=== PATIENT | female | born 2005 | race Caucasian/White ===

== ENCOUNTER 2025-05-18 10:12 | Outpatient (REF) | payer BC, SELFPAY ==
--- OUTSIDE RECORDS SUMMARY | 2025-05-18 10:15 | XMS_ITS | Patient Health Record ---
Author Organization [facility] Address [address] [place] [address] Care Team Providers Care Systems Requirements Planner Name Role Phone Indy Genao M.D. Primary Care Provider Unavailable Jose Roberto Finch Unavailable [phone] Allergies No Known Allergies Reason For Referral No Information Medications Medication SIG (Take, Route, Fr equency, Duration) Notes Start Date End Date Status Sertraline HCl 50 MG 1 tablet Orally Once a day Active Omeprazole 20 MG 1 Orally Once a day as needed 08/2025 Active Immunizations Vaccine Route Administration Date Status Comme nts Influenza Unknown 05/16/2025 Refused Social History Tobacco Use: Social History Observation Description Date Details (start date - stop date) Never Smoker NA - NA Tobacco Control (Standard) Question Answer Notes Tobacco use: Nonsmoker AUDIT-C (Standard) Question Answer Notes Did you have a drink containing alcohol in the p ast year? No Points 0 Interpretation Negative Section Notes: Non-smoker, no significant a lcohol Problems Problem Type SNOMED Code ICD Code Onset Dates Problem Status W/U Status Risk Notes Problem Rectal bleeding (46467526) Rectal bleeding (K62.5) Active confirmed Problem Abdominal pain, epigastric (R10.13) Active confirmed Problem Gastroesophageal reflux disease (756415875) GERD (gastroesophag eal reflux disease) (K21.9) Active confirmed Vital Signs Temperature 98.4 degrees Fahrenheit 05/16/2025 Blood pressure diastolic 01 mm Hg 05/16/2025 Height 61 in 05/16/2025 Blood pressure systolic 001 mm Hg 05/16/2025 Weight 114.4 lbs 05/16/2025 BMI 21.61 kg/m2 05/16/2025 Procedures Procedure Date Ordered Date Performed Result Body Sit e UPPER GI ENDOSCOPY 05/16/2025 N/A COLONOSCOPY 05/16/2025 N/A Encounters Encounter Location Date Provider Diagnosis [facility] [address] [place] [address] 05/16/2025 Jose Roberto Finch Rectal bleeding K62. 5 ; GERD (gastroesophageal reflux disease) K21.9 and Abdominal pain, epigastric R10.13 [facility] [address] [place] [address] 05/16/2025 Jose Roberto Finch Assessments Encounter Date Diagnosis (ICD Code) Assessment Notes Treatment Notes Treatment Clinical Notes Section Notes 05/16/2025 Rectal bleeding (ICD-10 - K62.5) Overall, Beth appears quite well. We did review that part of her symptomatology may be some underlying irritable bowel syndrome given some slight bowel movement regularity and abdominal cramps, we did discuss that she could add some supplemental fiber or something like MiraLAX to her daily regimen if her bowel movements become symptomatically uncomfortable with more constipation or rectal discomfort. However at this point they do not seem particularly problematic in that regard. In regard to the rectal bleeding we did review that this most likely reflects something like an internal hemorrhoid. However given the persistence over the past year and now occurring with every bowel movement over at least the past couple of weeks, with blood on the toilet paper and in the toilet bowl, I did recommend a colonoscopy to definitively exclude any other pathology such as inflammatory bowel disease or some type of polyp such as a juvenile polyp. In regard to the reflux and abdominal discomfort I recommended an upper endoscopy on the same day to rule out any significant esophagitis or other possibilities such as celiac disease. Full consent has been attained from her for both procedures, including risks of bleeding and perforation. The procedures will be done with monitored anesthesia care. I shall check some laboratories including a celiac disease profile. I have also ordered an abdominal ultrasound to rule out any other possibilities such as symptomatic gallstones. I did advise Beth and her mother to let me know if she has any increasing symptoms such as more bleeding or abdominal pain in the interim. Beth and her mother were comfortable with this plan. Thank you again for allowing me to participate in Beth's care. I shall continue to keep you advised of her progress. 05/16/2025 GERD (gastroesophag eal reflux disease) (ICD-10 - K21.9) Overall, Beth appears quite well. We did review that part of her symptomatology may be some underlying irritable bowel syndrome given some slight bowel movement regularity and abdominal cramps, we did discuss that she could add some supplemental fiber or something like MiraLAX to her daily regimen if her bowel movements become symptomatically uncomfortable with more constipation or rectal discomfort. However at this point they do not seem particularly problematic in that regard. In regard to the rectal bleeding we did review that this most likely reflects something like an internal hemorrhoid. However given the persistence over the past year and now occurring with every bowel movement over at least the past couple of weeks, with blood on the toilet paper and in the toilet bowl, I did recommend a colonoscopy to definitively exclude any other pathology such as inflammatory bowel disease or some type of polyp such as a juvenile polyp. In regard to the reflux and abdominal discomfort I recommended an upper endoscopy on the same day to rule out any significant esophagitis or other possibilities such as celiac disease. Full consent has been attained from her for both procedures, including risks of bleeding and perforation. The procedures will be done with monitored anesthesia care. I shall check some laboratories including a celiac disease profile. I have also ordered an abdominal ultrasound to rule out any other possibilities such as symptomatic gallstones. I did advise Beth and her mother to let me know if she has any increasing symptoms such as more bleeding or abdominal pain in the interim. Beth and her mother were comfortable with this plan. Thank you again for allowing me to participate in Beth's care. I shall continue to keep you advised of her progress. 05/16/2025 Abdominal pain, epigastric (ICD-10 - R10.13) Overall, Beth appears quite well. We did review that part of her symptomatology may be some underlying irritable bowel syndrome given some slight bowel movement regularity and abdominal cramps, we did discuss that she could add some supplemental fiber or something like MiraLAX to her daily regimen if her bowel movements become symptomatically uncomfortable with more constipation or rectal discomfort. However at this point they do not seem particularly problematic in that regard. In regard to the rectal bleeding we did review that this most likely reflects something like an internal hemorrhoid. However given the persistence over the past year and now occurring with every bowel movement over at least the past couple of weeks, with blood on the toilet paper and in the toilet bowl, I did recommend a colonoscopy to definitively exclude any other pathology such as inflammatory bowel disease or some type of polyp such as a juvenile polyp. In regard to the reflux and abdominal discomfort I recommended an upper endoscopy on the same day to rule out any significant esophagitis or other possibilities such as celiac disease. Full consent has been attained from her for both procedures, including risks of bleeding and perforation. The procedures will be done with monitored anesthesia care. I shall check some laboratories including a celiac disease profile. I have also ordered an abdominal ultrasound to rule out any other possibilities such as symptomatic gallstones. I did advise Beth and her mother to let me know if she has any increasing symptoms such as more bleeding or abdominal pain in the interim. Beth and her mother were comfortable with this plan. Thank you again for allowing me to participate in Beth's care. I shall continue to keep you advised of her progress. Plan Of Treatment Pending Test Test Name Order Date UPPER GI ENDOSCOPY 05/16/2025 COLONOSCOPY 05/16/2025 LIVER PROFILE 05/16/2025 IRON + IBC (FE) 05/16/2025 CRP 05/16/2025 CBC w DIFF 05/16/2025 SED RATE (ESR) 05/16/2025 Ferritin 05/16/2025 Vitamin B12 and Folate 05/16/2025 TSH reflex Free T4 05/16/2025 US abdomen complete 05/16/2025 Celiac Disease Panel 05/16/2025 Next Appt Details Provider Name:Jose Roberto Finch , 05/24/2025 03:10:00 PM, [address] [place] [address] , [place], [place], [phone], Insurance Providers Payer Name Payer Address Payer Phone Subscriber Number Group Number Insured Name Patient Relationship to Insured Coverage Start Date Coverage End Date [facility] [address] [place] [address] [id number] BLAKE ORELLANA Self - patient is the insured
[2025-05-18 10:25] LABS: MANUAL DIFF FLAG NO
[2025-05-18 10:58] LABS: Hematocrit 38.6 % (37.0-47.0); Hemoglobin 13.2 g/dl (12.0-16.0); Imm Gran Abs Auto 0.02 X10*3/uL (0.00-0.03); Imm Gran Pct Auto 0.4 % (0.0-0.4); Lymphocytes Absolute Auto 1.7 X10*3/uL (1.2-4.9); Mean Corpuscular HGB Conc 34.2 g/dl (31.0-35.0); Mean Corpuscular Hemoglobin 29.4 pg (27.0-33.0); Mean Corpuscular Volume 86.0 fL (80.0-98.0); NRBC Abs Auto 0.000 X10*3/uL (0.0-0.012); NRBC Pct Auto 0.0 /100WBC (0.0-0.2); Platelet Count 281 X10*3/uL (160-400); Red Blood Count 4.49 X10*6/uL (4.20-5.50); White Blood Count 5.4 X10*3/uL (4.8-10.8)
[2025-05-18 11:36] LABS: Alanine Aminotransferase 15 U/L (0-31); Albumin Level 4.8 g/dL (3.5-5.0); Alkaline Phosphatase 54 U/L (39-117); Aspartate Amino Transferase 18 U/L (5-31); Iron 47 mcg/dL (30-160); Percent Iron Saturation 16 % (15-50); Total Iron Binding Capacity 293 mcg/dL (228-428); Total Protein 7.1 g/dL (6.5-8.0); Unsaturated Iron Binding 246 ug/dL
[2025-05-18 11:55] LABS: Ferritin 56 ng/mL (10-122)
[2025-05-18 12:02] LABS: Folate 10.5 ng/mL (> or = 4.0); Vitamin B12 811 pg/mL (200-900)
[2025-05-22 19:34] LABS: Immunoglobulin A 19 mg/dL (47-310)
== END 2025-05-18 10:13 | disposition home or self-care (01) ==
LOC: HO.LAB 10:12
PROVIDERS: Visit Provider Internal Medicine
DX: K62.5 Hemorrhage of anus and rectum (principal); R10.13 Epigastric pain
CPT/HCPCS: 36415; 80076; 82607; 82728; 82746; 82784; 83540; 84443; 85025; 85652; 86140; 86364

== ENCOUNTER 2025-05-24 13:22 | Day surgery (SDC) | payer BC, SELFPAY ==
--- OUTSIDE RECORDS SUMMARY | 2025-05-20 16:07 | XMS_ITS | Patient Health Record ---
Author Organization [facility] Address [address] [place] [address] Care Team Providers Care Supervisor Soakers Name Role Phone Indy Genao M.D. Primary Care Provider Unavailable Stef Jose Roberto Unavailable [phone] Allergies No Known Allergies Results Component Value Reference Range Notes Ferritin Reviewed date:05/19/2025 12:49:01 PM Interpretation: Performing Lab:[facility], [address] [place] [phone] Notes/Report: Ferritin 56 10-122 ng/mL Vitamin B12 and Folate Reviewed date:05/19/2025 12:49:39 PM Interpretation: Performing Lab:[facility], [address] [place] [phone] Notes/Report: Vitamin B12 811 200-900 pg/mL NORMAL 200-900 PG/ML INDETERMINATE 160-199 PG/ML DEFICIENT < 160 PG/ML Folate 10.5 > or = 4.0 ng/mL Reference Values: > or = 4.0 ng/mL < 4.0 ng/mL suggests folate deficiency Methotrexate, aminopterin and folinic acid (leucovorin) are chemotherapeutic agents whose molecular structures are similar to folate; therefore, the Lathe Turner folate assay cannot be used for patients using these drugs. TSH reflex Free T4 Reviewed date:05/19/2025 12:48:53 PM Interpretation: Performing Lab:[facility], [address] [place] [phone] Notes/Report: TSH reflex Free T4 1.27 0.32-4.0 uIU/mL Complete Blood Count Auto Di ff Reviewed date:05/19/2025 12:48:35 PM Interpretation: Performing Lab:[facility], [address] [place] [phone] Notes/Report: White Blood Count 5.4 4.8-10.8 X10*3/uL Red Blood Count 4.49 4.20-5.50 X10*6/uL Hemoglobin 13.2 12.0-16.0 g/dl Hematocrit 38.6 37.0-47.0 % Mean Corpuscular Volume 86.0 80.0-98.0 fL Mean Corpuscular Hemoglobin 29.4 27.0-33.0 pg Mean Corpuscular HGB Conc 34.2 31.0-35.0 g/dl Red Cell Distribution Width 11.7 11.0-16.0 % Platelet Count 281 160-400 X10*3/uL Mean Platelet Volume 9.8 9.4-12.3 fL Neutrophils Percent Auto 57.5 45-73 % Imm Gran Pct Auto 0.4 0.0-0.4 % Lymphocytes Percent Auto 31.9 20-40 % Monocytes Percent Auto 7.0 2-11 % Eosinophils Percent Auto 2.8 0-4 % Basophils Percent Auto 0.4 0-2 % NRBC Pct Auto 0.0 0.0-0.2 /100WBC Neutrophils Absolute Auto 3.1 2.0-8.3 x10*3/u L Imm Gran Abs Auto 0.02 0.00-0.03 X10*3/uL Lymphocytes Absolute Auto 1.7 1.2-4.9 X10*3/u L Monocytes Absolute Auto 0.4 0.1-1.2 X10*3/uL Eosinophils Absolute Auto 0.2 0.0-0.4 X10*3/u L Basophils Absolute Auto 0.0 0.0-0.2 X10*3/uL NRBC Abs Auto 0.000 0.0-0.012 X10*3/uL Erythrocyte Sedimentation Ra te Reviewed date:05/19/2025 12:47:13 PM Interpretation: Performing Lab:[facility], [address] [place] [phone] Notes/Report: Erythrocyte Sedimentation Rate 4 0-20 MM/HR Patients with polycythemia and many hemoglobin abnormalities may have depressed sed rates whereas patients with anemia may have elevated sed rates. Liver Panel Reviewed date:05/19/2025 12:48:06 PM Interpretation: Performing Lab:[address] [phone] Notes/Report: Bilirubin Total 0.3 0.0-1.0 mg/dL Bilirubin Direct 0.1 0.0-0.5 mg/dL Aspartate Amino Transferase 18 5-31 U/L Alanine Aminotransferase 15 0-31 U/L Total Protein 7.1 6.5-8.0 g/dL Albumin Level 4.8 3.5-5.0 g/dL Alkaline Phosphatase 54 39-117 U/L IRON PROFILE Reviewed date:05/19/2025 12:47:32 PM Interpretation: Performing Lab:[address] [phone] Notes/Report: Iron 47 30-160 mcg/dL Total Iron Binding Capacity 293 228-428 mcg/d L Percent Iron Saturation 16 15-50 % Unsaturated Iron Binding 246 C Reactive Protein Reviewed date:05/19/2025 12:47:22 PM Interpretation: Performing Lab:[facility], [address] [place] [phone] Notes/Report: C Reactive Protein 0.16 < or = 0.50 mg/dL Reason For Referral No Information Medications Medication [...] W/U Status Risk Notes Problem Rectal bleeding (43434908) Rectal bleeding (K62.5) Active confirmed Problem Epigastric pain (93010535) Abdominal pain, epigastric (R10.13) Active confirmed Problem Gastroesophageal reflux disease (253491551) GERD (gastroesophag eal reflux disease) (K21.9) Active [...] N/A Encounters Encounter Location Date Provider Diagnosis [facility] [address] [place] [phone] 05/16/2025 Jose Roberto Finch Rectal bleeding K62. 5 ; GERD (gastroesophageal reflux disease) K21.9 and Abdominal pain, epigastric R10.13 [facility] [address] [place] [phone] 05/16/2025 Jose Roberto Finch Assessments Encounter Date [...] again for allowing me to participate in Bteh's care. I shall continue to keep you [...] w DIFF 05/16/2025 SED RATE (ESR) 05/16/2025 US abdomen complete 05/16/2025 Celiac Disease Panel 05/16/2025 Next Appt Details Provider Name:Jose Roberto Truong Stef , 05/24/2025 03:10:00 PM, [address] [place] [address] , [place], [phone], Insurance Providers Payer Name Payer Address Payer Phone Subscriber Number Group Number Insured Name Patient Relationship to Insured Coverage Start Date Coverage End Date [facility] [address] [place] [address] [id number] BLAKE ORELLANA Self - patient is the insured
[2025-05-24 13:34] VITALS: BP 108/63; PULSE 100; RESP 18; TEMP 36.9; O2SAT 98; BMI 21.7
[2025-05-24] MEDS: Lactated Ringers 1,000 ML 100 ML IVCONT (13:55)
[2025-05-24 14:01] LABS: UPreg QC Valid YES
--- NOTE | 2025-05-24 14:54 | HO.ANESPROP2 ---
Documented by User: Marlene Keane NP 05/23/25 12:14 HPI - Anesthesia Eval Consult details Narrative: 20yo F for Upper Endoscopy and Colonoscopy [facility] Past Medical History Medical History (Updated 05/24/25 @ 13:46 by Rocio Hairston RN) History of rectal bleeding GERD (gastroesophageal reflux disease) Social History Social History Patient Tobacco Use Status: Never used Tobacco Have you been hit, kicked, punched, or otherwise hurt by someone within the past year? If so, by whom?: No Are you DNR?: No Advance Directives: No Advance Directives Information Provided: Yes Patient : No FDLMP: 3 days ago Meds Allergies Allergy/AdvReac Type Severity Reaction Status Date / Time No Known Allergies Allergy Verified 05/23/25 11:17 Home Medications ?Medication ?Instructions ?Recorded ?Confirmed ?Last Taken ?Type sertraline 25 mg tablet 25 mg PO DAILY 05/23/25 05/23/25 Unknown History sertraline 50 mg tablet 50 mg PO DAILY 05/23/25 05/23/25 Unknown History omeprazole 20 mg tablet,delayed 50 mg PO DAILY 05/24/25 05/24/25 Unknown History release Exam Pertinent Lab Results Pertinent Lab Results: Laboratory Tests 05/18/25 10:23 WBC 5.4 Hgb 13.2 Hct 38.6 Plt Count 281 Assessment and Plan Assessment Anesthesia Assessment: Chart Reviewed Documented by User: Vicenta Salcido DO 05/24/25 15:01 [facility] Past Medical History Medical History (Updated 05/24/25 @ 13:46 by Rocio Hairston RN) History of rectal bleeding GERD (gastroesophageal reflux disease) Family History Family history of problems with anesthesia: No (never had anesthesia) Surgical History History of Problems with Anesthesia: No Social History Social History Patient Tobacco Use Status: Never used Tobacco Have you been hit, kicked, punched, or otherwise hurt by someone within the past year? If so, by whom?: No Are you DNR?: No Advance Directives: No Advance Directives Information Provided: Yes Patient : No FDLMP: 3 days ago Meds Allergies Allergy/AdvReac Type Severity Reaction Status Date / Time No Known Allergies Allergy Verified 05/23/25 11:17 Home Medications ?Medication ?Instructions ?Recorded ?Confirmed ?Last Taken ?Type sertraline 25 mg tablet 25 mg PO DAILY 05/23/25 05/23/25 Unknown History sertraline 50 mg tablet 50 mg PO DAILY 05/23/25 05/23/25 Unknown History omeprazole 20 mg tablet,delayed 50 mg PO DAILY 05/24/25 05/24/25 Unknown History release Exam Exam Date and Time: 05/24/25 1450 Height,Weight and Vital Signs: Vital Signs Temperature 98.5 F 05/24/25 13:34 Pulse Rate 100 05/24/25 13:34 Respiratory Rate 18 05/24/25 13:34 Blood Pressure 108/63 05/24/25 13:34 Pulse Oximetry 98 05/24/25 13:34 Oxygen Delivery Method Room Air 05/24/25 13:34 Temperature 98.5 F 05/24/25 13:34 Pulse Rate 100 05/24/25 13:34 Respiratory Rate 18 05/24/25 13:34 Blood Pressure 108/63 05/24/25 13:34 Pulse Oximetry 98 05/24/25 13:34 Oxygen Delivery Method Room Air 05/24/25 13:34 Height 5 ft 1 in Weight 52.163 kg Airway Mallampati Class: II TM Dist: >3cm Neck ROM: Full Loose/Missing/Broken Teeth: No (patient denies any loose or broken teeth) Heart: S1S2 Lungs: CTAB Assessment and Plan Assessment Anesthesia Assessment: Anesthesia Plan Discussed and Chart Reviewed Final Anesthetic Review Family History of Problems with Anesthesia: No (never had anesthesia) History of Problems with Anesthesia: No NPO: Yes ASA Class: I Final Preanesthetic Review: No Changes in Pt Med Stat, Meds/Allgs Chart Reviewed, Consent Obtained/Reviewed and Anes Risks/Benef Reviewed Patient Risk: Low Procedure Risk: Low Anesthetic Plan Anesthetic Plan: MAC: and Agree w/ Assess. and Plan Disposition: Standard PACU
--- NOTE | 2025-05-24 14:54 | PC.NURSE ---
report to bree castellanos moved to bed 14 pacu
[2025-05-24 16:48] VITALS: BP 101/42; PULSE 85; RESP 16; TEMP 36.8; O2SAT 98
[2025-05-24 16:55] VITALS: BP 119/71; PULSE 72; RESP 16; O2SAT 98
[2025-05-24 17:10] VITALS: BP 106/60; PULSE 70; RESP 16; TEMP 36.8; O2SAT 99
--- NOTE | 2025-05-24 17:24 | PM.OP ---
Brief Operative Note Date of Service: 05/24/25 Pre-op diagnosis: GERD, Rectal bleeding Post-op diagnosis: other (Small hiatal hernia, GERD, Internal hemorrhoids) Procedure: EGD with biopsies, Colonoscopy to the cecum and TI with biopsies Surgeon: Jose Roberto Finch MD Anesthesia: MAC Was an Internet Marketing Manager used for this Procedure?: No Estimated blood loss (mL): 2.0 Pathology: other (A. 2nd/3rd portions of duodenum B. Gastric antrum C. EG Juncton at 35cm D. Terminal ileum E. Ascending colon) Condition: stable Disposition: PACU
--- NOTE | 2025-05-25 00:08 | OP_ITS ---
DATE OF SERVICE: 05/24/2025 SURGEON: Jose Roberto Finch MD INDICATIONS: The patient presents for evaluation of gastroesophageal reflux, abdominal discomfort, and rectal bleeding. Full consent was obtained from her for this, including risks of bleeding and perforation. PREOPERATIVE DIAGNOSIS: POSTOPERATIVE DIAGNOSIS: PROCEDURE PERFORMED: Esophagogastroduodenoscopy with biopsies, and colonoscopy to cecum and terminal ileum with biopsies. ESTIMATED BLOOD LOSS: COMPLICATIONS: ANESTHESIA: Medication use, monitored anesthesia care. ASSISTANTS: SPECIMENS: PREOPERATIVE DIAGNOSES: Gastroesophageal reflux, abdominal discomfort, rectal bleeding. POSTOPERATIVE DIAGNOSES: Gastroesophageal reflux, abdominal discomfort, rectal bleeding, small hiatal hernia, rule out celiac disease, rule out gastritis and/or H pylori, internal hemorrhoids, rule out microscopic colitis. DESCRIPTION OF PROCEDURE: The patient was placed in the left lateral decubitus position. The Olympus video gastroscope was passed in the posterior oropharynx and upper esophagus under direct vision. The scope was passed slowly to the distal esophagus. The gastroesophageal junction appeared at 35 cm. There was some very slight irregularity consistent with reflux, but no evidence of any esophagitis nor any definitive Clark mucosa. The scope entered the stomach. There was a small hiatal hernia. The scope was advanced to pylorus and the duodenum was cannulated to the descending portion. The duodenum including the bulb appeared normal without mass or ulceration. Biopsies were obtained from the 2nd and 3rd portions of duodenum. The scope was withdrawn back in the stomach. The gastric antrum and body appeared normal other than some very minimal areas of erythema. There was good peristalsis. Biopsies were obtained from the gastric antrum. The scope was retroflexed visualizing the proximal stomach carefully, which appeared normal, without any sign of mass or ulceration. The scope was straightened and withdrawn back to the esophagus. Biopsies were obtained at the EG junction at 35 cm. Proximal to that the esophageal mucosa appeared normal. The scope was withdrawn from the patient. She was turned around for the colonoscopy. The digital rectal exam revealed no abnormalities and specifically there was no sign of any perianal disease. The Olympus video pediatric colonoscope was entered into the rectum and advanced easily to the cecum. Once in the cecum, I did identify normal-appearing cecal pouch with appendiceal orifice and a normal-appearing ileocecal valve. The terminal ileum was cannulated and appeared normal. Biopsies were obtained from the ileum. The scope was withdrawn back in the colon. The entire cecum and ileocecal valve appeared normal. The scope was slowly withdrawn assessing all mucosal surfaces carefully. Preparation was excellent. I did not visualize any sign of polyps, colitis, nor angiodysplasia. I did obtain some random biopsies in the ascending colon. In the rectum, scope was retroflexed visualizing internal hemorrhoids, but no sign of any particular friability or bleeding. The rectal mucosa appeared normal. The scope was straightened and withdrawn from the patient. She tolerated both procedures well and was returned to the recovery area in stable condition. IMPRESSION: 1. Small hiatal hernia, slight changes of reflux, rule out Clark's esophagus. 2. Rule out gastritis and/or H pylori. 3. Rule out celiac disease. 4. Rule out microscopic colitis. 5. Internal hemorrhoids as the cause of her hematochezia. PLAN: The results of the biopsies will be checked. She was advised not to use any aspirin or NSAIDs for at least a week. She has been instructed to use some [id number] Prilosec or Pepcid for reflux and heartburn symptoms as needed. I do not think she needs to be on a daily medication, but if she does I did advise her and her mother to let me know that and we can always send over a prescription either for a PPI or a H2 kamala. She was advised to try to eat a healthy diet with plenty of fiber and fluids, as well as to use some supplemental fiber and/or stool softener to avoid constipation and straining, which could obviously irritate the hemorrhoids. She was instructed to use some [id number]-[id number] Preparation-H suppositories as needed. Obviously, if the hemorrhoids continue to prove problematic and bothersome she could always be seen by a surgeon for those. However, at this time I do not think that is needed. She was advised to keep her appointment for an upcoming abdominal ultrasound. Of note, she was found to have a low IgA level recently during lab work for celiac disease testing. I did advise her and her mother of this and to review that with her primary care provider to see whether or not a referral to an gear lapper is required. I will be in touch with her as to the results of the biopsies and ultrasound, and then see how she is doing. She may need a followup office visit as well. This has all been discussed with the patient and her mother in detail. MD MARCOS Austin/LUCIA / [id number] [email or web address]
== END 2025-05-24 17:20 | disposition home or self-care (01) ==
PROVIDERS: Nurse Practitioner; Visit Provider Internal Medicine
PROC: (CPT 45380; principal; 2025-05-24 15:10)
DX: K62.5 Hemorrhage of anus and rectum (principal); K64.8 Other hemorrhoids; K21.9 Gastro-esophageal reflux disease without esophagitis; R10.9 Unspecified abdominal pain; K44.9 Diaphragmatic hernia without obstruction or gangrene; D80.2 Selective deficiency of immunoglobulin A [IgA]; Z79.899 Other long term (current) drug therapy
CPT/HCPCS: 45380; 43239; 81025; 88305; 88313; 88342; J2003; J2371; J2704

== ENCOUNTER 2025-08-20 10:21 | Outpatient (REF) | payer BC, SELFPAY ==
--- OUTSIDE RECORDS SUMMARY | 2025-05-24 11:10 | XMS_ITS ---
Author Organization [facility] Address [address] [place] [address] Care Team Providers Care Security Installation Sales Technician Name Role Phone Indy Genao M.D. Primary Care Provider Jose Roberto Gudino [phone] REASON FOR VISIT gerd, rectal bleeding Encounters Encounter Location Date Provider Diagnosis [facility] Outpatient [address] [place] [phone] 05/24/2025 Jose Roberto Finch Plan Of Treatment No Information Progress Notes * CIPRIANO ORELLANANDOB:[birth year] (20 yo F)Acc No.[id number]:05/24/2025 EGD and COL/MAC Patient: BLAKE RIVAS Provider: Cristina Finch MD :2005 A ge:20 Y S ex:Female Date:05/24/2025 Address:[address] [place], [place] [phone] Pcp:Hakeem Ellis Subjective: * Chief Complaints: * 1 . Gerd, rectal bleeding. * Medical History: Objective: * Vitals: Assessment: Plan: * Treatment: * * The named appointment provid er may or may not be the originator of this progress note, and it is not deemed complete until electronically signed by the appointment provider. Sign off status: Pending * Provider: Cristina Finch MD Date: 0 05/24/2025 Generated for Printi ng/Faxing/eTransmitting on: 1 12:12 PM EDT
--- NOTE | ~2025-08-20 | US_ITS ---
CLINICAL HISTORY: ABDOMINAL PAIN, EPIGASTRIC PAIN Ultrasound of the abdomen Comparison: None available Findings: The liver is normal in size, measuring 14.7cm. Normal echogenicity without focal lesions. Normal flow is visualized within the portal vein. No intrahepatic biliary ductal dilatation. No cholelithiasis. No gallbladder wall thickening or pericholecystic fluid. Negative Mota's sign. The common bile duct is normal, measuring 0.3cm. Unremarkable limited evaluation of the pancreas. The right kidney is normal in echogenicity and size, measuring 9.8cm. No nephrolithiasis or hydronephrosis. The left kidney is normal echogenicity and size, measuring 10.0cm. No nephrolithiasis or hydronephrosis. The spleen is without focal lesions and normal in size, measuring 9.8cm. The aorta and IVC are unremarkable. No ascites. Impression: Normal abdominal ultrasound. This document has been electronically signed by: Sona Conklin MD on 08/21/2025 14:25:32
--- OUTSIDE RECORDS SUMMARY | 2025-08-20 12:13 | XMS_ITS | Patient Health Record ---
Author Organization [facility] Address [address] [place] [address] Care Team Providers Care Interpreter And Translator Name Role Phone Indy Genao M.D. Primary Care Provider Unavailable FinchJose Roberto Unavailable [phone] Allergies No Known Allergies Results Component Value Reference Range Notes Ferritin Reviewed date:05/19/2025 12:49:01 PM Interpretation: Performing Lab:[facility], [address] [place] [phone] Notes/Report: Ferritin 56 10-122 ng/mL Vitamin B12 and Folate Reviewed date:05/19/2025 12:49:39 PM Interpretation: Performing Lab:[facility], [address] [place] [phone] Notes/Report: Vitamin B12 811 200-900 pg/mL NORMAL 200-900 PG/ML INDETERMINATE 160-199 PG/ML DEFICIENT < 160 PG/ML Folate 10.5 > or = 4.0 ng/mL Reference Values: > or = 4.0 ng/mL < 4.0 ng/mL suggests folate deficiency Methotrexate, aminopterin and folinic acid (leucovorin) are chemotherapeutic agents whose molecular structures are similar to folate; therefore, the Rn Clinical Review folate assay cannot be used for patients using these drugs. TSH reflex Free T4 Reviewed date:05/19/2025 12:48:53 PM Interpretation: Performing Lab:[facility], [address] [place] [phone] Notes/Report: TSH reflex Free T4 1.27 0.32-4.0 uIU/mL Celiac Disease Panel Reviewed date:06/02/2025 10:11:09 PM Interpretation: Performing Lab:[facility], [address] [place] [phone] Notes/Report: Immunoglobulin A 19 47-310 mg/dL Verified by repeat analysis. THIS TEST WAS PERFORMED AT: [facility] [address] [place] [phone] HEMANT VELAZQUEZ MD Transglutaminase IgA <1.0 Value Interpretation ----- <15.0 Antibody not detected > or = 15.0 Antibody detected Celiac Disease Panel Interp. SEE NOTE No serological evidence for celiac disease is present. Consider IgA deficiency. Complete Blood Count Auto Di ff Reviewed date:05/19/2025 12:48:35 PM Interpretation: Performing Lab:[facility], [address] [place] [phone] Notes/Report: White Blood Count 5.4 4.8-10.8 X10*3/uL [...] te Reviewed date:05/19/2025 12:47:13 PM Interpretation: Performing Lab:[address] [phone] Notes/Report: Erythrocyte Sedimentation Rate 4 0-20 MM/HR Patients with polycythemia and many hemoglobin abnormalities may have depressed sed rates whereas patients with anemia may have elevated sed rates. Liver Panel Reviewed date:05/19/2025 12:48:06 PM Interpretation: Performing Lab:[address] [phone] Notes/Report: Bilirubin Total 0.3 0.0-1.0 mg/dL Bilirubin Direct 0.1 0.0-0.5 mg/dL Aspartate Amino Transferase 18 5-31 U/L Alanine Aminotransferase 15 0-31 U/L Total Protein 7.1 6.5-8.0 g/dL Albumin Level 4.8 3.5-5.0 g/dL Alkaline Phosphatase 54 39-117 U/L IRON PROFILE Reviewed date:05/19/2025 12:47:32 PM Interpretation: Performing Lab:[address] [phone] Notes/Report: Iron 47 30-160 mcg/dL Total Iron Binding Capacity 293 228-428 mcg/d L Percent Iron Saturation 16 15-50 % Unsaturated Iron Binding 246 C Reactive Protein Reviewed date:05/19/2025 12:47:22 PM Interpretation: Performing Lab:[address] [phone] Notes/Report: C Reactive Protein 0.16 < or = 0.50 mg/dL Ur Preg Test Reviewed date:05/25/2025 01:03:29 AM Interpretation: Performing Lab:[address] [phone] Notes/Report: Urine NEGATIVE NEGATIVE This test was developed to detect early . False negative results may occur after the 5th - 7th week of when using this test method. If clinically indicated, consider a serum hCG. Pathology Reviewed date:06/02/2025 09:14:35 PM Interpretation: Performing Lab:[facility], [address] [place] [phone] Notes/Report: Reason For Referral No Information Medications Medication [...] W/U Status Risk Notes Problem Rectal bleeding (51707655) Rectal bleeding (K62.5) Active confirmed Problem Epigastric pain (16957429) Abdominal pain, epigastric (R10.13) Active confirmed Problem Gastroesophageal reflux disease (654944457) GERD (gastroesophag eal reflux disease) (K21.9) Active [...] N/A Encounters Encounter Location Date Provider Diagnosis [facility] Outpatient [address] [place] [id number] 05/24/2025 Jose Roberto Finch [facility] [address] [place] [address] 05/16/2025 Jose Roberto Finch Rectal bleeding K62.5 ; GERD (gastroesophageal reflux disease) K21.9 and Abdominal pain, epigastric R10.13 [facility] [address] [place] [address] 05/16/2025 Jose Roberto Finch [facility] [address] [place] [address] 05/22/2025 Jose Roberto Finch [facility] [address] [place] [address] 07/11/2025 Jose Roberto Finch Assessments Encounter Date Diagnosis (ICD Code) Assessment Notes Treatment Notes Treatment Clinical Notes Section Notes 05/16/2025 Rectal bleeding (ICD-10 - K62.5) Overall, Beth appears quite well. We did review that part of her symptomatology may be some underlying irritable bowel syndrome given some slight bowel movement regularity and abdominal cramps. We did discuss that she could add some [...] as celiac disease. Full consent has been obtained from her for both procedures, including risks [...] some slight bowel movement regularity and abdominal cramps. We did discuss that she could add some [...] as celiac disease. Full consent has been obtained from her for both procedures, including risks [...] some slight bowel movement regularity and abdominal cramps. We did discuss that she could add some [...] as celiac disease. Full consent has been obtained from her for both procedures, including risks [...] RATE (ESR) 05/16/2025 US abdomen complete 05/16/2025 Insurance Providers Payer Name Payer Address Payer Phone Subscriber Number Group Number Insured Name Patient Relationship to Insured Coverage Start Date Coverage End Date [facility] [address] [place] [address] [id number] BLAKE ORELLANA Self - patient is the insured
--- OUTSIDE RECORDS SUMMARY | 2025-08-20 12:13 | XMS_ITS | Clinical Summary ---
Author Organization [facility] Address [address] [place] [phone] Phone Care Team Providers Care Calker Name Role Phone Pcp, Unknown Primary Care Provider Unavailabl e Social History Tobacco Use Types Packs/Day Years Used Date Smoking Tobacco: Never Assessed Education Answer Date Recorded Are you interested in more education? Not on josue e 03/04/2023 Are you concerned about learning? Not on file 03/04/2023 No 03/04/2023 No 03/04/2023 Digital Access Answer Date Recorded No 04/04/2023 No 04/04/2023 No 04/04/2023 Reliable internet access at home? Not on file 04/04/2023 Device with a working camera? Not on file Comments Unknown Sex and Gender Information Value Date Recorded Sex Assigned at Not on file Legal Sex Female 10:23 PM EDT Gender Identity Not on file Sexual Orientation Not on file Plan of Treatment Upcoming Encounters Date Type Department Care Team (Late st Contact Info) Description 12/20/2025 3:00 PM EST Office Visit [facility] [place] [facility] [address] [place] [address] [place] [address] Indy Genao [address] [facility] [place] [address] [email or web address] Health Maintenance Due Date Last Done Comments DEPRESSION SCREENING 2016 SMOKING Hx and SMOKELESS TOBACCO SCREENING 02/22/2017 ADOLESCENT UNIVERSAL LIPID SCREENING 02/22/2021 CHLAMYDIA SCREENING 04/08/2021 04/08/2020 HEPATITIS C SCREENING 02/22/2022 HIV ONE-TIME SCREENING (18-65 YEARS) 02/22/2022 PAP SMEAR 02/22/2025 INFLUENZA VACCINE (#1) 2025 , 08/14/2019, 08/06/2018, Additional history exists COVID-19 VACCINE ( season) 2025 06/17/2022, 05/19/2022 Adult Td,Tdap Booster 03/02/2026 03/02/2016, 015 COMBINED DTaP,Tdap,Td (8 - Td or Tdap) 03/02/2026 03/02/2016, 02/25/2015, 04/03/2008, Additional history exists HIB VACCINES Completed 05/27/2005, 02/2004, 2004, Additional history exists PNEUMOCOCCAL VACCINES (0-49 years) Aged Out 05/27/2005, 2004, 2004, Additional history exists No longer eligible based on patient's age to complete this topic MMR VACCINES Completed 02/14/2009, 02/22/2005 HEPATITIS A VACCINES Completed 02/21/2018, 02/24/20 HPV VACCINES Completed 02/21/2018, 03/08/2017 MENINGOCOCCAL VACCINES (ACWY) Completed 04/08/2020, 03/08/2017 MENINGOCOCCAL VACCINES (B) Completed 06/08/2022, Medical Devices Not on file Procedures Procedure Name Priority Date/Time Associated Diagnosis Comments CHLAMYDIA TRACHOMATIS AND NEISSERIA GONORRHOEAE NUCLEIC ACID DETECTION Routine 04/08/2020 5:11 PM EDT Encounter for routine child health examination without abnormal findings from Last 3 Months or Most Recently Relevant to Health Maintenance Results * Chlamydia Trachomatis and Neisseria Gonorrhoeae Nucleic Acid Detection (04/08/2020 5:11 PM EDT) CHLAMYDIA TRACHOMATIS Not Detected Not Detected [facility] NEISERIA GONORRHOEAE Not Detected Not Detected [facility] SPECIMEN TYPE URINE [facility] Urine (Urine) 04/08/2020 5:1 1 PM EDT 04/08/2020 5:27 PM EDT Karissa eVlasco MD NON CULTURE MICROBIOLOG Y Final Result Performing Organization Address City/State/[facility] Co de Phone Number [facility] [address] [place] [address] from Last 3 Months or Most Recently Relevant to Health Maintenance Insurance [facility] OUT OF STATE PPO [facility] OUT [facility] PPO [place] OUT OF STATE PPO [place] OUT OF STATE PPO [place] OUT OF STATE PPO [place] OUT OF STATE [place]PO [place] STATE PPO [place] OUT STATE PPO [place] OUT OF STATE PPO [place] OUT OF STATE PPO [facility] [place] OUT OF STATE PPO [place] OUT OF STATE PPO [place] OUT OF STATE PPO Care Teams Calker Relationship Specialty Start Date End Date Pcp, Unknown PCP - General 04/08/20 Additional Source Comments The information contained in this document represents components of the legal health record. It is not the complete legal health record.[facility]
== END 2025-08-20 10:22 | disposition home or self-care (01) ==
LOC: HO.US 10:21
PROVIDERS: Visit Provider Internal Medicine
DX: R10.13 Epigastric pain (principal)
CPT/HCPCS: 76700

== ENCOUNTER → 2025-08-20 10:23 | Outpatient (BNV) | payer BC, SELFPAY | PROVIDERS: Visit Provider Radiology Diagnostic Radiology | DX: R10.13 Epigastric pain (principal); R10.9 Unspecified abdominal pain | CPT/HCPCS: 76700 ==